=== PATIENT | male | born 1995 | race Two or more races ===

== ENCOUNTER 2023-09-30 16:24 | Inpatient (IN) | payer OTHER ==
[2023-09-30 17:00] VITALS: BMI 19.8
[2023-09-30] MEDS ORDERED: BENZONATATE 200 MG CAPSULE PO PRN (21:04)
[2023-09-30] MEDS ORDERED: ACETAMINOPHEN 325 MG TABLET (FP) PO PRN (21:04)
[2023-09-30] MEDS ORDERED: BENZOCAINE/MENTHOL (CHLORASEPTIC ) LOZENGE MM PRN (21:04)
[2023-09-30] MEDS ORDERED: NALOXONE HCL 0.4 MG/ML VIAL IM PRN (21:04)
[2023-09-30] MEDS ORDERED: NALOXONE HCL (KLOXXADO) 8 MG SPRAY NS PRN (21:04)
[2023-09-30] MEDS ORDERED: hydrOXYzine PAMOATE 25 MG CAPSULE (FP) PO PRN (21:04)
[2023-09-30] MEDS ORDERED: POLYETHYLENE GLYCOL (HEALTHYLAX) 3350 17 GM PACKET PO PRN (21:04)
[2023-09-30] MEDS ORDERED: MAG HYDROX/AL HYDROX/SIMETH 30 ML UNIT-DOSE CUP PO PRN (21:04)
[2023-09-30] MEDS ORDERED: IBUPROFEN 600 MG TABLET (FP) PO PRN (21:04)
[2023-09-30] MEDS ORDERED: P-EPHED 60MG/TRIPROLIDI 2.5MG TABLET PO PRN (21:04)
[2023-09-30] MEDS ORDERED: MAGNESIUM HYDROX 2400MG/30ML ORAL SUSPENSION 30 ML CUP PO PRN (21:04)
[2023-09-30] MEDS ORDERED: ONDANSETRON *ODT* 4 MG TABLET SL PRN (21:04)
[2023-09-30] MEDS ORDERED: BISMUTH SUBSALICYLATE 524 MG/30 ML PO PRN (21:04)
[2023-09-30] MEDS ORDERED: IBUPROFEN 400 MG TABLET (FP) PO PRN (21:04)
[2023-09-30] MEDS ORDERED: DICYCLOMINE HCL 10 MG CAPSULE PO PRN (21:04)
[2023-09-30] MEDS ORDERED: LOPERAMIDE HCL 2 MG CAPSULE PO PRN (21:04)
[2023-09-30] MEDS ORDERED: guaiFENesin 600 MG TABLET.ER (FP) PO PRN (21:04)
[2023-09-30] MEDS: THIAMINE HCL 100 MG TABLET (FP) PO SCH (22:32)
[2023-09-30] MEDS: MELATONIN 5 MG TABLETS PO SCH (22:32)
[2023-09-30] MEDS: NICOTINE POLACRILEX 2 MG GUM BUC PRN (23:20)
[2023-10-01] MEDS: PRENATAL VITAMINS W/ FOLIC ACID TABLET (FP) PO SCH (10:06)
[2023-10-01] MEDS ORDERED: methaDONE HCL 10 MG TABLET (FOR DETOX USE ONLY) PO ONE (10:52)
[2023-10-01 11:45] LABS: POTASSIUM 4.4 mmol/L (3.5-5.1)
[2023-10-01 12:00] LABS: CALCIUM 8.6 mg/dL (8.5-10.1)
[2023-10-01 12:01] LABS: ALBUMIN 3.3 g/dl (3.4-5.0); BLOOD UREA NITROGEN 11.9 mg/dL (7-18); HEMATOCRIT 39.4 % (35.4-49); HEMOGLOBIN 12.8 GM/dL (11.7-16.9); MCH 28.5 pg (25.7-33.7); MCHC 32.4 g/dl (32.0-35.9); MEAN CELL VOLUME 87.9 fl (80-96); MEAN PLT VOLUME 7.4 fl (7.5-11.1); PLATELET COUNT 363 10^3/uL (134-434); RBC 4.49 M/mm3 (4.00-5.60); RDW 14.4 % (11.9-15.9); WHITE BLOOD COUNT 4.6 K/mm3 (4.0-10.0)
[2023-10-01 12:05] LABS: BILIRUBIN,TOTAL 0.5 mg/dL (0.2-1); TOT PROT 6.1 g/dl (6.4-8.2)
[2023-10-01] MEDS: NICOTINE 14 MG/24 HOURS TOPICAL PATCH TD SCH (13:07)
[2023-10-01] MEDS: diazePAM 5 MG TABLET PO PRN (18:54)
[2023-10-01] MEDS ORDERED: SUVOREXANT 10 MG TABLET PO PRN (22:00)
[2023-10-01] MEDS: THIAMINE HCL 100 MG TABLET (FP) PO SCH (22:31)
[2023-10-01] MEDS: MELATONIN 5 MG TABLETS PO SCH (22:31)
[2023-10-01] MEDS: NICOTINE POLACRILEX 2 MG GUM BUC PRN (22:47)
[2023-10-02] MEDS: PRENATAL VITAMINS W/ FOLIC ACID TABLET (FP) PO SCH (10:02)
[2023-10-02] MEDS: diazePAM 5 MG TABLET PO PRN ×2 (10:06→15:21)
[2023-10-02] MEDS: NICOTINE 14 MG/24 HOURS TOPICAL PATCH TD SCH (10:44)
[2023-10-02] MEDS: NICOTINE POLACRILEX 2 MG GUM BUC PRN (18:04)
[2023-10-02] MEDS: QUEtiapine FUMARATE 50 MG TABLET PO SCH (22:33)
[2023-10-02] MEDS: THIAMINE HCL 100 MG TABLET (FP) PO SCH (22:33)
[2023-10-02] MEDS: MELATONIN 5 MG TABLETS PO SCH (22:35)
[2023-10-03] MEDS: METHOCARBAMOL 500 MG TABLET PO PRN ×2 (07:54→17:36)
[2023-10-03] MEDS: NICOTINE 14 MG/24 HOURS TOPICAL PATCH TD SCH (09:17)
[2023-10-03] MEDS: PRENATAL VITAMINS W/ FOLIC ACID TABLET (FP) PO SCH (09:17)
[2023-10-03] MEDS: NICOTINE POLACRILEX 2 MG GUM BUC PRN ×2 (09:18→22:20)
[2023-10-03] MEDS ORDERED: methaDONE HCL 10 MG TABLET (FOR DETOX USE ONLY) PO ONE (10:00)
[2023-10-03] MEDS: diazePAM 5 MG TABLET PO PRN ×2 (15:16→19:39)
[2023-10-03] MEDS ORDERED: SUVOREXANT 10 MG TABLET PO PRN (22:00)
[2023-10-03] MEDS: MELATONIN 5 MG TABLETS PO SCH (22:17)
[2023-10-03] MEDS: QUEtiapine FUMARATE 50 MG TABLET PO SCH (22:17)
[2023-10-03] MEDS: THIAMINE HCL 100 MG TABLET (FP) PO SCH (22:17)
[2023-10-04 07:06] VITALS: BP 115/73; PULSE 71; RESP 16; TEMP 98.4
== END 2023-10-04 08:46 | disposition home or self-care (01) | DRG 773 ==
LOC: YASAS 16:24 → Y3N 21:15
PROVIDERS: ADMIT Allergy & Immunology; ATTEND Surgery
PROC: HZ2ZZZZ Detoxification Services for Substance Abuse Treatment (ICD-10-PCS; principal; 2023-09-30)
DX: F11.23 Opioid dependence with withdrawal (principal); F12.20 Cannabis dependence, uncomplicated; F17.210 Nicotine dependence, cigarettes, uncomplicated
CPT/HCPCS: 36415; 80053; 85027; 86780; 87635; 93005; 93010